=== PATIENT | female | born 1970 | race Hispanic/Latino ===

== ENCOUNTER 2020-08-22 14:09 | Emergency (ER) | payer SELFPAY ==
[2020-08-22] VITALS (21 sets, daily range): BP systolic 105–151; BP diastolic 68–99; PULSE 62–91; RESP 12–27; O2SAT 95–100
--- NOTE | ~2020-08-22 | XR_ITS ---
EXAMINATION: XR chest 2V EXAM DATE: 08/22/2020 15:03 INDICATION: Mid chest pain. TECHNIQUE: Frontal and lateral projections of the chest obtained and reviewed. Comparison is made to prior examination from 02/07/2017. FINDINGS: The lungs are clear. There are no pleural effusions. The cardiomediastinal silhouette is within normal limits. There is no pneumothorax suspected. The bones and soft tissues are unremarkab le. IMPRESSION: Normal chest x-ray exam. Reviewed, dictated and finalized at location B. IMPRESSION: Normal chest x-ray exam.
--- NOTE | 2020-08-22 14:19 | ECG_ITS ---
Measurements Intervals [place] Rate: 84 P: 41 [place]: 148 QRS: 6 QRSD: 83 T: 19 QT: 361 QTc: 428 Interpretive Statements SINUS RHYTHM DELAYED PRECORDIAL R/S TRANSITION BORDERLINE T WAVE ABNORMALITY- ANT/INF LEADS BORDERLINE ECG Electronically Signed On 08-22-2020 14:46:26 CDT by Hussein Adame D.O.
[2020-08-22 14:40] LABS: Basophils Absolute Auto 0.1 K/mm3 (0.0-0.1); Basophils Percent Auto 0.8 % (0.2-1.2); Eosinophils Absolute Auto 0.2 K/mm3 (0-0.3); Eosinophils Percent Auto 2.2 % (0-4.4); Hematocrit 42.1 % (37.0-47.0); Hemoglobin 14.3 g/dL (12.0-15.0); Immature Granulocyte Absolute 0.02 K/mm3 (0.00-0.031); Immature Granulocyte Percent A 0.3 % (0-0.5); Lymphocytes Absolute Auto 3.06 K/mm3 (0.9-3.2); Lymphocytes Percent Auto 42.1 % (18.3-44.2); Mean Corpuscular Hemoglobin 29.9 pg (26-34); Mean Corpuscular Volume 87.9 fl (80-100); Mean Platelet Volume 9.4 fl (7.4-10.4); Monocytes Absolute Auto 0.3 K/mm3 (0.1-0.6); Monocytes Percent Auto 3.9 % (2.6-8.5); Neutrophils Absolute Auto 3.7 K/mm3 (1.3-6.7); Neutrophils Percent Auto 50.7 % (45.5-73.1); Platelet Count Result 376 k/mm3 (150-375); Red Blood Count 4.79 M/mm3 (4.2-5.4); Red Cell Distribution Width 12.6 % (11.5-14.5); White Blood Count 7.3 K/mm3 (4.5-10.0)
--- NOTE | 2020-08-22 14:46 | ED.GENADULT ---
HPI - General Adult General Chief complaint: Chest Pain Stated complaint: chest pain Time Seen by Provider: 08/22/20 14:33 Source: patient Mode of arrival: ambulatory Limitations: no limitations History of Present Illness HPI narrative: Patient is a 43-year-old female who presents with left-sided chest pain radiating into the left upper extremity patient notes aching pain that is remained constant for the last 3 days worse with activity movement of the left upper extremity denies injury or trauma. Patient denies similar occurrence. Patient presents in no distress has not taken anything for her symptoms. Related Data Home Medications Medication Instructions Recorded Confirmed albuterol sulfate 1 inh INHALATION QID 08/22/20 08/22/20 Allergies Allergy/AdvReac Type Severity Reaction Status Date / Time Penicillins Allergy Unknown Hives Verified 08/22/20 14:16 Review of Systems Review of Systems: All systems reviewed & are unremarkable except as noted in HPI and below PMFSH Social History Social History Smoking status: Current every day smoker Exam Narrative: Exam Narrative: GENERAL: Well-appearing, well-nourished, and in no acute distress. HEAD: Normocephalic, atraumatic. EYES: PERRLA and EOMI. ENT: Nares clear, no rhinorrhea or epistaxis. Mucous membranes moist. Oropharynx without tonsillar hypertrophy exudate or other lesions. NECK: Supple. No adenopathy or masses. CHEST: Clear to auscultation. No respiratory distress. No wheezes rales or rhonchi. Reproducible left-sided chest wall tenderness to palpation HEART: Regular rate and rhythm. No murmur heard. Normal peripheral pulses. ABDOMEN: Soft, nontender, nondistended EXTREMITIES: Normal range of motion. No edema. SKIN: Warm, dry, no rash. NEURO: No focal deficits. Alert and oriented x3. PSYCH: Normal mood and affect. Course Course Emergency Course: Patient in the room in no distress resting comfortably felt appropriate for outpatient reevaluation agreeing to follow-up as directed or to return if symptoms worsen or concerns Vital Signs Vital signs: Vital Signs Pulse Rate 77 08/22/20 14:13 Respiratory Rate 16 08/22/20 14:13 Blood Pressure 151/85 H 08/22/20 14:13 Pulse Oximetry 99 08/22/20 14:13 Pulse Rate 78 08/22/20 16:46 Respiratory Rate 27 H 08/22/20 16:46 Blood Pressure 125/90 08/22/20 16:46 Pulse Oximetry 99 08/22/20 16:46 Medical Decision Making MDM Narrative Medical decision making narrative: Paitents EKGs and labs are without significant high risk changes. Cardiac risk facotrs were reviewd. Patient is felt likely to be low risk for ACS and resonable for further risk stratification testing as an outpatient. Pain was not suddne or maximal in onset without tearing or ripping. quality. No other signs or symptoms to suggest aortic dissection. A low-risk Wells criteria is noted. PE is felt to be unlikely. No pneumonia or URI symptoms were seen on evaluation today. Patient is felt to b resonable for continued evaluation as an outpatient. Vital Signs Vital Signs: Vital Signs Pulse Rate 77 08/22/20 14:13 Respiratory Rate 16 08/22/20 14:13 Blood Pressure 151/85 H 08/22/20 14:13 Pulse Oximetry 99 08/22/20 14:13 Pulse Rate 78 08/22/20 16:46 Respiratory Rate 27 H 08/22/20 16:46 Blood Pressure 125/90 08/22/20 16:46 Pulse Oximetry 99 08/22/20 16:46 Lab Data Result diagrams: 08/22/20 14:34 08/22/20 14:34 Labs: Lab Results 08/22/20 08/22/20 08/22/20 Range/Units 14:34 14:34 14:34 WBC 7.3 (4.5-10.0) K/mm3 RBC 4.79 (4.2-5.4) M/mm3 Hgb 14.3 (12.0-15.0) g/dL Hct 42.1 (37.0-47.0) % MCV 87.9 (80-100) fl MCH 29.9 (26-34) pg MCHC 34.0 (32-36) g/dl RDW 12.6 (11.5-14.5) % Plt Count 376 H (150-375) k/mm3 MPV 9.4 (7.4-10.4) fl Immature Gran % (Auto) 0.3 (0-
[2020-08-22 14:49] LABS: Prothrombin Time 12.6 Seconds (11.1-14.7)
[2020-08-22 14:51] LABS: Anion Gap 9 mmol/L (8-16); Blood Urea Nitrogen 12 mg/dL (7-17); Calcium 9.5 mg/dL (8.4-10.2); Carbon Dioxide 24 mmol/L (22-30); Chloride 104 mmol/L (98-107); Estimated CRCL calculation 105 ml/min; Estimated Glomerular Filt Rate > 60; Glucose 166 mg/dL (65-105); Potassium 3.7 mmol/L (3.4-5.0); Sodium 137 mmol/L (137-145)
[2020-08-22] MEDS: ASPIRIN 81 MG CHEWABLE TABLET 324 MG PO (14:53)
[2020-08-22] MEDS: KETOROLAC 30 MG/ML VIAL (*BKC) IV PUSH (14:54)
[2020-08-22 15:02] LABS: Troponin I < 0.012 ng/mL (0.000-0.034)
[2020-08-22 15:41] LABS: D Dimer 0.27 ug/mL (<0.48)
--- NOTE | 2020-08-22 16:28 | PC.NURSE ---
Resting on stretcher. VSS. Call light within reach.
[2020-08-22 17:27] LABS: Troponin I < 0.012 ng/mL (0.000-0.034)
--- NOTE | 2020-08-22 17:53 | PC.NURSE ---
Provider at bedside to discuss results and treatment plan with pt.
== END 2020-08-22 18:03 | disposition home or self-care (01) ==
PROVIDERS: Emergency Medicine; Emergency Medicine Emergency Medical Services; Emergency Provider Emergency Medicine; PCP Family Medicine
DX: R07.9 Chest pain, unspecified (principal); F17.200 Nicotine dependence, unspecified, uncomplicated; R94.31 Abnormal electrocardiogram [ECG] [EKG]
CPT/HCPCS: 36415; 71046; 80048; 84484; 85025; 85380; 85610; 85730; 93005; 96374; 99284; A9270; J1885